=== PATIENT | female | born 1950 | race Caucasian/White ===

== ENCOUNTER 2023-07-03 19:45 | Emergency (ER) | payer OTHER ==
[~2023-07-03] VITALS: Ht 170.2 cm; Wt 61.2 kg
[2023-07-03 19:50] VITALS: BP_SYST 107; PULSE 70; RESP 18; TEMP 97.2; O2SAT 96
[2023-07-03] MEDS: levETIRAcetam 500 MG TABLET PO ONE (21:21)
[2023-07-03] MEDS: levETIRAcetam 1,000 MG IV BAG 100 ML IV ONE (21:24)
[2023-07-03] MEDS: LORazepam 2 MG/ML VIAL IVP ONE (21:29)
[2023-07-03 21:42] LABS: ANION GAP 20 (5-15); CALCIUM 9.1 mg/dL (8.4-11.0); CARBON DIOXIDE 19 mmol/L (23-29); CHLORIDE 99 mmol/L (98-107); CREATININE 1.33 mg/dL (0.55-1.30); GLUCOSE 180 mg/dL (74-106); POTASSIUM 3.2 mmol/L (3.5-5.1); SODIUM SERUM 138 mmol/L (136-145); UREA NITROGEN, BLOOD 14 mg/dL (8-21)
[2023-07-03 21:43] LABS: INR 1.1 (0.8-1.2); PROTHROMBIN TIME 11.7 SECS (9.5-12.5)
[2023-07-03 21:58] LABS: ACETAMINOPHEN < 1 ug/mL (1-30); ALANINE AMINOTRANSFERASE 12 U/L (12-78); ALBUMIN 3.6 g/dL (3.4-4.8); ALCOHOL, BLOOD < 3 mg/dL (<10); ASPARTATE AMINOTRANSFERASE 20 U/L (10-37); BILIRUBIN,DIRECT 0.1 mg/dL (0.0-0.3); CREATINE KINASE, TOTAL 103 U/L (26-192); SALICYLATE 1 mg/dL (3-30); TOTAL BILIRUBIN 0.4 mg/dL (0.0-1.0); TOTAL PROTEIN, SERUM 7.2 g/dL (6.4-8.3)
[2023-07-03] MEDS: NS 500 ML IV ONE (22:00)
[2023-07-03 22:09] LABS: BASOPHILS % (AUTO) 0.3 % (0.0-2.0); HEMATOCRIT 37.2 % (36-48); HEMOGLOBIN 12.3 g/dL (12.0-16.0); LYMPHOCYTES # (AUTO) 0.9 K/uL (1.0-5.5); LYMPHOCYTES % (AUTO) 12.3 % (20.5-51.5); MEAN CORPUSCULAR HEMOGLOBIN 29 pg (27-31); MEAN CORPUSCULAR HGB CONC 33 % (32-36); MEAN CORPUSCULAR VOLUME 89 fL (79.0-98.0); MONOCYTES # (AUTO) 0.2 K/uL (0.0-1.0); MONOCYTES % (AUTO) 3.3 % (1.7-9.3); NEUTROPHILS % (AUTO) 84.1 % (40.0-70.0); PLATELET COUNT (AUTO) 172 K/uL (130-430); RED BLOOD CELL COUNT(AUTO) 4.19 MIL/uL (4.2-6.2); RED CELL DISTRIBUTION WIDTH 13.5 % (9.0-15.0); WHITE BLOOD COUNT (AUTO) 7.1 K/uL (4.8-10.8)
[2023-07-03 22:15] LABS: ACETONE, SERUM NEGATIVE (NEGATIVE)
[2023-07-03 23:12] VITALS: BP_SYST 110; PULSE 68; RESP 20; TEMP 97.7; O2SAT 100
[2023-07-04] MEDS ORDERED: LORazepam 2 MG/ML VIAL ONE (06:38)
== END 2023-07-03 23:05 | disposition short-term general hospital (02) ==
LOC: SED 19:45
DX: S06.5X0A Traumatic subdural hemorrhage without loss of consciousness, initial encounter (principal); R56.9 Unspecified convulsions; Z79.899 Other long term (current) drug therapy; X58.XXXA Exposure to other specified factors, initial encounter; Y93.89 Activity, other specified; Y92.89 Other specified places as the place of occurrence of the external cause; Y99.8 Other external cause status
CPT/HCPCS: 99285; 70450; 96365; 71045; 96361; 96375; 80076; 80048; 82009; 82140; 82550; 85025; 85610; 85730; 84484; 36415; 93005; 72125; 83605; 82397; G0482; J1953; J7030; G0480; G0481; J2060